=== PATIENT | female | born 1975 | race African-American/Black ===

== ENCOUNTER 2019-12-23 07:00 | Day surgery (SDC) | payer OTHER ==
[~2019-12-23] VITALS: Ht 157.5 cm; Wt 143.2 kg
[~2019-12-23 07:00] MED LIST: ALBU8.5H8 IH; ATEN-72 PO; ERGO500054 PO; FERR-82 PO; LANS30CA56 PO; LOSA50TA37 PO; METF-960 PO; REPA1 PO
[2019-12-23] MEDS ORDERED: SODIUM CHLORIDE 0.9% 1,000 ML ONE (07:12)
[2019-12-23] MEDS ORDERED: BACL10TA PO (07:39)
[2019-12-23] MEDS ORDERED: TOLT2TAB2 PO (07:39)
[2019-12-23] MEDS ORDERED: GABA-1181 PO (07:39)
[2019-12-23] MEDS ORDERED: DULO40CA2 PO (07:39)
[2019-12-23] MEDS ORDERED: FLUT16H NASAL (07:39)
[2019-12-23] MEDS ORDERED: LORA10TA7 PO (07:39)
[2019-12-23] MEDS ORDERED: CYCL10 PO (07:39)
[2019-12-23] MEDS ORDERED: MECL25TA39 PO (07:39)
[2019-12-23] MEDS ORDERED: MONT10TA21 PO (07:39)
[2019-12-23] MEDS ORDERED: FOLI-130 PO (07:39)
[2019-12-23] MEDS ORDERED: ACET-66 PO (07:39)
[2019-12-23] MEDS ORDERED: ASCO500 PO (07:39)
[2019-12-23] MEDS ORDERED: LIRA3PEN SQ (07:39)
[2019-12-23] MEDS ORDERED: SODI45SP10 NASAL (07:39)
[2019-12-23] MEDS ORDERED: CYAN500T65 PO (07:39)
[2019-12-23] MEDS ORDERED: RANITIDINE PO (07:39)
[2019-12-23] MEDS ORDERED: ALBU8HFA IH (07:39)
[2019-12-23] MEDS ORDERED: FAMO20 PO (07:39)
[2019-12-23] MEDS ORDERED: SIMV-259 PO (07:39)
[2019-12-23] MEDS ORDERED: MELO-107 PO (07:39)
[2019-12-23] MEDS ORDERED: ONDA-104 PO (07:39)
[2019-12-23] MEDS ORDERED: POLY15DR29 OU (07:39)
[2019-12-23] MEDS ORDERED: ADV500 IH (07:39)
[2019-12-23] MEDS ORDERED: TOPI25 PO (07:39)
[2019-12-23] MEDS ORDERED: DOCU-275 PO (07:39)
[2019-12-23] MEDS ORDERED: CHOL100018 PO (07:39)
[2019-12-23] MEDS ORDERED: SODIUM CHLORIDE 0.9% 1,000 ML IV ONE (09:00)
[2019-12-23 09:42] LABS: GLUCOMETER DEV NAME(LOC) SDS.; GLUCOSE,POINT OF CARE 86 MG/DL (70-110)
[2019-12-23 11:17] LABS: BASOPHILS % (AUTO) 0.6 % (0.0-2.0); HEMATOCRIT 38.7 % (36-46); HEMOGLOBIN 12.9 g/dL (12.0-16.0); LYMPHOCYTES # (AUTO) 1.2 K/uL (1.0-4.8); LYMPHOCYTES % (AUTO) 22.1 % (22.0-44.0); MEAN CORPUSCULAR HEMOGLOBIN 31.7 pg (26.0-34.0); MEAN CORPUSCULAR HGB CONC 33.4 G/dL (31.0-37.0); MEAN CORPUSCULAR VOLUME 95 fL (80-100); MONOCYTES # (AUTO) 0.4 K/uL (0.1-1.0); NEUTROPHILS # (AUTO) 3.5 K/uL (1.8-7.7); NEUTROPHILS % (AUTO) 64.3 % (40.0-70.0); PLATELET COUNT (AUTO) 261 K/uL (150-450); RED BLOOD CELL COUNT(AUTO) 4.07 MIL/uL (4.00-5.20)
[2019-12-23 11:23] LABS: ANION GAP 8 mmol/L (8-16); CALCIUM, TOTAL 8.8 mg/dL (8.8-10.5); CARBON DIOXIDE 25 mmol/L (22-29); CHLORIDE 108 mmol/L (98-107); CREATININE 0.78 mg/dL (0.60-1.30); GLOMERULAR FILTR. RATE CALC > 60 mL/min (>60); GLUCOSE,RANDOM 90 mg/dL (70-110); POTASSIUM 3.8 mmol/L (3.5-5.1); SODIUM SERUM 141 mmol/L (136-145); UREA NITROGEN, BLOOD 7 mg/dL (7-18)
[2019-12-23] MEDS ORDERED: PROPOFOL 1% 20 ML VIAL IVP ONE (12:00)
[2019-12-23] MEDS ORDERED: LIDOCAINE/PF 2% 5 ML VIAL INJ ONE (12:00)
== END 2019-12-23 12:50 | disposition home or self-care (01) ==
LOC: SURGERY 07:00
PROVIDERS: ATTEND Specialist
DX: R11.2 Nausea with vomiting, unspecified (principal); K29.50 Unspecified chronic gastritis without bleeding; I10 Essential (primary) hypertension; D64.9 Anemia, unspecified; J45.909 Unspecified asthma, uncomplicated; E66.01 Morbid (severe) obesity due to excess calories; Z68.43 Body mass index [BMI] 50.0-59.9, adult; Z88.1 Allergy status to other antibiotic agents; Z88.7 Allergy status to serum and vaccine; Z88.0 Allergy status to penicillin; Z91.040 Latex allergy status; Z79.899 Other long term (current) drug therapy
CPT/HCPCS: 36415; 43239; 80048; 82962; 84703; 85025; 87635; 88305; 88312; 88313; 93005; C1769; J2704; J3490; J7030